=== PATIENT | male | born 1960 | race Caucasian/White ===

== ENCOUNTER 2020-12-02 15:10 | Outpatient (CLI) | payer OTHER, SELFPAY ==
[2020-12-02 17:42] LABS: Iron 80 ug/dL (49-181)
[2020-12-02 17:51] LABS: Percent Iron Saturation 28 % (20-50)
[2020-12-02 18:31] LABS: Hepatitis B Surface Antigen Negative (Negative)
[2020-12-02 18:37] LABS: HAV RESULT Negative (Negative); Hepatitis B Core IgM Result Negative (Negative)
[2020-12-02 18:49] LABS: Hepatitis C Virus Antibody Negative (Negative)
[2020-12-07 21:18] LABS: Ceruloplasmin 29 mg/dL (18-36)
[2020-12-09 16:15] LABS: ALT 30 U/L (9-46); Alpha-2-Macroglobulin 162 mg/dL (106-279); Apolipoprotein A1 137 mg/dL (94-176); Fibrosis Score 0.27; Fibrosis Stage F0-F1; GGT 89 U/L (3-70); Haptoglobin 269 mg/dL (43-212); Necroinflammat Act Grade A0; Total Bilirubin 0.6 mg/dL (0.2-1.2)
[2020-12-12 10:18] LABS: Mitochondrial (M2) Ab (IgG) <=20.0 U (<=20.0)
== END 2020-12-02 15:11 | disposition home or self-care (01) ==
LOC: ANHLAB 15:12
PROVIDERS: PCP Family Medicine; Visit Provider Internal Medicine Gastroenterology
DX: R74.8 Abnormal levels of other serum enzymes (principal); R79.89 Other specified abnormal findings of blood chemistry
CPT/HCPCS: 36415; 80074; 81596; 82104; 82390; 82728; 83520; 83540; 83550; 86038

== ENCOUNTER 2020-12-15 09:54 | Outpatient (CLI) | payer OTHER, SELFPAY ==
--- NOTE | ~2020-12-15 | US_ITS ---
US right upper quadrant INDICATION: Elevated liver enzymes PROCEDURE: Realtime right upper abdominal ultrasound. COMPARISON: No prior studies for comparison. FINDINGS: The pancreas is normal without focal mass or pancreatic ductal dilation. Liver echotexture is normal without focal mass or intrahepatic biliary dilatation. There is normal directional flow i n the portal vein. There are gallstones. Common bile duct measures 3 mm. No sonographic Harris's sign. IMPRESSION: 1: Cholelithiasis. Reviewed, dictated and finalized at location A. IMPRESSION: 1: Cholelithiasis.
== END 2020-12-15 09:55 ==
LOC: MICIMG 09:55
PROVIDERS: PCP Nurse Practitioner; Visit Provider Internal Medicine Gastroenterology
DX: R79.89 Other specified abnormal findings of blood chemistry (principal); K80.20 Calculus of gallbladder without cholecystitis without obstruction
CPT/HCPCS: 76705